=== PATIENT | male | born 1970 | race Caucasian/White ===

== ENCOUNTER 2020-12-06 15:52 | Outpatient (CLI) | payer OTHER, SELFPAY | END 2020-12-06 15:53 | disposition home or self-care (01) | LOC: ANHCOVIDVC 15:52 | PROVIDERS: Visit Provider Internal Medicine | DX: Z23 Encounter for immunization (principal) | CPT/HCPCS: 0001A; 91300 ==

== ENCOUNTER 2020-12-27 15:50 | Outpatient (CLI) | payer OTHER, SELFPAY | END 2020-12-27 15:51 | disposition home or self-care (01) | LOC: ANHCOVIDVC 15:50 | DX: Z23 Encounter for immunization (principal) | CPT/HCPCS: 0002A; 91300 ==

== ENCOUNTER → 2022-06-19 07:58 | Outpatient (CLI) | payer BC, SELFPAY ==
--- NOTE | ~2022-06-19 | MR_ITS ---
EXAMINATION: MR lumbar spine wo con DATE: 06/19/2022 08:28 INDICATION: Low back pain. TECHNIQUE: Magnetic resonance imaging (MRI) of the lumbar spine was performed without intravenous con trast. Sequences included sagittal T2-weighted FSE, sagittal T2-weighted FS FSE, sagittal T1-weighted FSE, and axial T2-weighted FSE. COMPARISON: None FINDINGS: There is 3 mm retrolisthesis of L4 on L5. There are Schmorl's nodes at multiple levels. The re is mild chronic anterior wedging of T12 and L1 vertebral bodies, likely physiologic. There is mild ly decreased disc height at L4-L5 and L5-S1. The distal spinal cord signal intensity is normal. The c onus medullaris is at L1. The following disc levels are specifically discussed: L1-L2: The disc does not extend beyond the endplate margin. There is mild bilateral facet joint osteo arthritis. There is no neural foraminal stenosis. There is no central canal stenosis. L2-L3: The disc does not extend beyond the endplate margin. There is mild bilateral facet joint osteo arthritis. There is no neural foraminal stenosis. There is no central canal stenosis. L3-L4: The disc does not extend beyond the endplate margin. There is mild bilateral facet joint osteo arthritis. There is no neural foraminal stenosis. There is no central canal stenosis. L4-L5: The disc is bulging and has an annular fissure. There is mild bilateral facet joint osteoarthr itis. There is mild bilateral neural foraminal stenosis. There is mild central canal stenosis. L5-S1: The disc is bulging and has an annular fissure. There is mild bilateral facet joint osteoarthr itis. There is mild bilateral neural foraminal stenosis. There is mild central canal stenosis. IMPRESSION: 1. Mild lumbar spondylosis. Reviewed, dictated and finalized at location A. IMPRESSION: 1. Mild lumbar spondylosis.
== END ==
DX: M43.10 Spondylolisthesis, site unspecified (principal); M51.36 Other intervertebral disc degeneration, lumbar region; M54.40 Lumbago with sciatica, unspecified side; M47.816 Spondylosis without myelopathy or radiculopathy, lumbar region
CPT/HCPCS: 72148